=== PATIENT | male | born 1940 | race Caucasian/White ===

== ENCOUNTER 2019-05-27 07:03 | Inpatient (IN) | payer MEDICARE, OTHER ==
[~2019-05-27 07:03] MED LIST: SOD CHLORIDE 0.9% 100 ML, TRANEXAMIC ACID 3,000 MG IRR
[2019-05-27] MEDS: GABAPENTIN 300 MG CAP PO ×2 (08:09→20:53)
[2019-05-27] MEDS: DEXAMETHASONE 2 MG TAB PO ×3 (08:09→23:53)
[2019-05-27] MEDS: LACTATED RINGER'S 1,000 ML IV ×3 (08:09→22:02)
[2019-05-27] MEDS ORDERED: FENTAnyl 50 MCG/ML VIAL (09:57)
[2019-05-27] MEDS: TRANEXAMIC ACID 1GM/100ML(PMX) 100 ML (10:00)
[2019-05-27] MEDS ORDERED: PROCHLORPERAZINE 10 MG INJ IV (10:00)
[2019-05-27] MEDS ORDERED: DIPHENHYDRAMINE 50 MG INJ IV ×2 (10:00→12:30)
[2019-05-27] MEDS ORDERED: MEPERIDINE 25 MG INJ IV (10:00)
[2019-05-27] MEDS ORDERED: LABETALOL HCL 20MG INJ IV (10:00)
[2019-05-27] MEDS ORDERED: ONDANSETRON 4 MG INJ IV ×2 (10:00→12:30)
[2019-05-27] MEDS ORDERED: MIDAZOLAM 1 MG/ML 2 ML INJ (10:00)
[2019-05-27] MEDS ORDERED: hydrALAzine 20 MG INJ IV (10:00)
[2019-05-27] MEDS ORDERED: HYDROmorphONE 1 MG/5 ML IV SYRINGE IV ×3 (10:00)
[2019-05-27] MEDS ORDERED: EPHEDrine 25 MG/5 ML SYG IV (10:00)
[2019-05-27] MEDS ORDERED: FENTAnyl 50 MCG/ML VIAL IV (10:00)
[2019-05-27] MEDS ORDERED: POLYMYXIN/BACITRACIN 1L IRRIG (10:07)
[2019-05-27] MEDS ORDERED: LIDOCAINE 2% (SDV) 5 ML INJ (10:19)
[2019-05-27] MEDS ORDERED: PROPOFOL 20 ML (10:19)
[2019-05-27] MEDS ORDERED: CEFAZOLIN 1 GM INJ (10:19)
[2019-05-27] MEDS: CEFAZOLIN 2 GM/50 ML (PMX) 50 ML IVPB (10:22)
[2019-05-27] MEDS ORDERED: THROMBIN 5000 UNIT (RECOTHROM) VIAL (10:33)
[2019-05-27] MEDS ORDERED: CA CHLORIDE 10% 10 ML SYRINGE (10:33)
[2019-05-27] MEDS ORDERED: TRANEXAMIC ACID 1GM/100ML(PMX) 100 ML (10:34)
[2019-05-27] MEDS ORDERED: DEXAMETHASONE 4 MG/ML 5 ML INJ (10:50)
[2019-05-27] MEDS ORDERED: ONDANSETRON 4 MG INJ (10:50)
[2019-05-27] MEDS ORDERED: FAMOTIDINE 20 MG INJ (10:50)
[2019-05-27] MEDS: POLYMYXIN/BACITRACIN 1L IRRIG IRR (10:54)
[2019-05-27] MEDS: BUPIVACAINE 0.5% (SDV) 30 ML, morphine SULFATE (PF) 8 MG, EPINEPHrine 0.3 MG, KETOROLAC... IRR (10:55)
[2019-05-27] MEDS: TRANEXAMIC ACID 1GM/100ML(PMX) 100 ML IVPB ×2 (10:55→12:00)
[2019-05-27] MEDS ORDERED: EPHEDrine 25 MG/5 ML SYG (11:03)
[2019-05-27] MEDS ORDERED: ROPIVACAINE 0.5 % 30 ML VIAL (11:37)
[2019-05-27] MEDS ORDERED: ZOLPIDEM 5 MG TAB PO (12:30)
[2019-05-27] MEDS ORDERED: NACL 0.9% 3 ML SYG IV (12:30)
[2019-05-27] MEDS ORDERED: MAGNESIUM HYDROXIDE 30ML CUP PO (12:30)
[2019-05-27] MEDS ORDERED: oxyCODONE 5 MG TAB PO ×2 (12:30)
[2019-05-27] MEDS ORDERED: HYDROmorphONE 1 MG/ML SYG IV (12:30)
[2019-05-27 13:00] LABS: ADD MAN DIFF? NO
[2019-05-27 13:02] LABS: BASOPHILS % 0.2 % (0.0-2.0); EOSINOPHILS % 0.1 % (0.0-7.0); HEMATOCRIT 42.9 % (42.0-52.0); LYMPHOCYTES # 0.8 10^3/ul (0.8-2.9); LYMPHOCYTES % 7.9 % (15.0-51.0); MEAN CORPUSCULAR HGB CONC 32.6 g/dl (32.0-37.0); MEAN CORPUSCULAR VOLUME 98.2 fl (82.0-101.0); MEAN PLATELET VOLUME 10.5 fl (7.4-10.4); MONOCYTE # 0.1 10^3/ul (0.3-0.9); MONOCYTES % 1.3 % (0.0-11.0); NEUTROPHIL # 9.2 10^3/ul (1.6-7.5); NEUTROPHILS % 89.7 % (39.0-77.0); PLATELET COUNT 183 10^3/UL (140-415); RED BLOOD COUNT 4.37 10^6/ul (4.70-6.10); RED CELL DISTRIBUTION WIDTH 13.1 % (11.5-14.5)
[2019-05-27 13:02] LABS: WHITE BLOOD COUNT 10.3 10^3/ul (4.8-10.8)
[2019-05-27] MEDS: ACETAMINOPHEN 1000MG/100ML IV 100 ML IVPB ×2 (13:16→20:52)
[2019-05-27] MEDS: CEFAZOLIN 1 GM/50 ML (PMX) 50 ML IVPB ×2 (13:26→20:53)
[2019-05-27] MEDS: ATORVASTATIN 40 MG TAB PO (20:53)
[2019-05-27] MEDS: SENNA/DOCUSATE NA (8.6MG/50MG) TAB PO (20:53)
[2019-05-27] MEDS: METOPROLOL (XL) 25 MG TAB PO (20:53)
[2019-05-28] MEDS: ACETAMINOPHEN 1000MG/100ML IV 100 ML IVPB (04:55)
[2019-05-28 05:09] LABS: ADD MAN DIFF? NO
[2019-05-28 05:17] LABS: BASOPHILS % 0.1 % (0.0-2.0); HEMATOCRIT 38.3 % (42.0-52.0); HEMOGLOBIN 12.7 g/dl (14.0-18.0); LYMPHOCYTES # 0.7 10^3/ul (0.8-2.9); LYMPHOCYTES % 4.4 % (15.0-51.0); MEAN CORPUSCULAR HEMOGLOBIN 32.1 pg (29.0-33.0); MEAN CORPUSCULAR HGB CONC 33.2 g/dl (32.0-37.0); MEAN CORPUSCULAR VOLUME 96.7 fl (82.0-101.0); MEAN PLATELET VOLUME 11.2 fl (7.4-10.4); MONOCYTE # 0.9 10^3/ul (0.3-0.9); MONOCYTES % 5.7 % (0.0-11.0); NEUTROPHIL # 13.5 10^3/ul (1.6-7.5); NEUTROPHILS % 89.1 % (39.0-77.0); PLATELET COUNT 170 10^3/UL (140-415); RED BLOOD COUNT 3.96 10^6/ul (4.70-6.10); RED CELL DISTRIBUTION WIDTH 12.7 % (11.5-14.5)
[2019-05-28 05:17] LABS: WHITE BLOOD COUNT 15.1 10^3/ul (4.8-10.8)
[2019-05-28] MEDS: CEFAZOLIN 1 GM/50 ML (PMX) 50 ML IVPB (05:18)
[2019-05-28] MEDS: LACTATED RINGER'S 1,000 ML IV (05:18)
[2019-05-28] MEDS: DEXAMETHASONE 2 MG TAB PO ×2 (05:37→12:28)
[2019-05-28] MEDS: oxyCODONE 5 MG TAB PO ×2 (09:33→14:09)
[2019-05-28] MEDS: AMLODIPINE 2.5 MG TAB PO (09:34)
[2019-05-28] MEDS: ASPIRIN (EC) 325 MG TAB PO (09:35)
[2019-05-28] MEDS: METOPROLOL (XL) 50 MG TAB PO (09:35)
[2019-05-28] MEDS: SENNA/DOCUSATE NA (8.6MG/50MG) TAB PO (09:35)
[2019-05-28] MEDS: LOSARTAN 50 MG TAB PO (09:35)
[2019-05-29] MEDS ORDERED: MAGNESIUM HYDROXIDE 30ML CUP PO (21:00)
== END 2019-05-28 14:30 | disposition home or self-care (01) | DRG 470 ==
LOC: REC 07:03 → MS1 13:40
PROVIDERS: Orthopaedic Surgery
PROC: 0SR902A Replacement of Right Hip Joint with Metal on Polyethylene Synthetic Substitute, Uncemented, Open Approach (ICD-10-PCS; principal; 2019-05-27 09:30)
DX: M16.11 Unilateral primary osteoarthritis, right hip (principal); I10 Essential (primary) hypertension; E78.5 Hyperlipidemia, unspecified; Z95.1 Presence of aortocoronary bypass graft; E88.81 Metabolic syndrome and other insulin resistance; Z85.46 Personal history of malignant neoplasm of prostate
CPT/HCPCS: 72170; 73530; 85025; 86999; 87086; 88304; 88311; 97110; 97116; 97161